=== PATIENT | male | born 1950 | race African-American/Black ===

== ENCOUNTER 2019-06-01 11:38 | Emergency (ER) | payer MEDICARE, OTHER ==
[~2019-06-01] VITALS: Ht 165.1 cm; Wt 63.2 kg
[~2019-06-01 11:38] MED LIST: AMLO10TA7 PO; IBUP-2070 PO; SIMV-259 PO
[2019-06-01] MEDS ORDERED: ACET1TAB12 PO (11:58)
[2019-06-01] MEDS ORDERED: FERR-82 PO (11:58)
[2019-06-01 13:30] VITALS: BP 139/78
== END 2019-06-01 15:00 | disposition home or self-care (01) ==
LOC: EMS 11:41
DX: R20.8 Other disturbances of skin sensation (principal); E78.00 Pure hypercholesterolemia, unspecified; I10 Essential (primary) hypertension; M19.90 Unspecified osteoarthritis, unspecified site; Z79.899 Other long term (current) drug therapy; Z88.6 Allergy status to analgesic agent; Z88.5 Allergy status to narcotic agent